=== PATIENT | male | born 1985 | race Caucasian/White ===

== ENCOUNTER 2023-06-29 17:42 | Emergency (ER) | payer MEDICAID, OTHER ==
[~2023-06-29] VITALS: Ht 180.3 cm; Wt 89.0 kg
[2023-06-29 18:44] VITALS: BP 106/66; PULSE 90; RESP 16; TEMP 98; O2SAT 95
[2023-06-29] MEDS ORDERED: BACDST PO ×3 (19:17→19:32)
== END 2023-06-29 19:41 | disposition home or self-care (01) ==
LOC: ER 17:42
DX: L03.114 Cellulitis of left upper limb (principal); B34.9 Viral infection, unspecified; F17.210 Nicotine dependence, cigarettes, uncomplicated